=== PATIENT | male | born 1945 | race Caucasian/White ===

== ENCOUNTER 2016-08-25 13:55 | Inpatient (IN) ==
[2016-08-25] MEDS ORDERED: ceFAZolin 1 GM VIAL IV ONE (15:00)
[2016-08-25] MEDS ORDERED: TRANEXAMIC ACID 1,000 MG/10 ML VIAL IV ONE ×2 (15:30→16:20)
[2016-08-25] MEDS ORDERED: LIDOCAINE HCL/PF 100 MG/5 ML SYRINGE IV ONE (15:30)
[2016-08-25] MEDS ORDERED: HYDROmorphone 2 MG/ML SYRINGE IV ONE (15:30)
[2016-08-25] MEDS ORDERED: PROPOFOL 200 MG/20 ML VIAL IV ONE (15:30)
[2016-08-25] MEDS ORDERED: DEXAMETHASONE 10 MG/ML VIAL IV ONE (15:30)
[2016-08-25] MEDS ORDERED: ONDANSETRON 4 MG/2 ML VIAL IV ONE (15:30)
[2016-08-25] MEDS ORDERED: MIDAZOLAM 5 MG/5 ML VIAL IV ONE (15:30)
[2016-08-25] MEDS ORDERED: fentaNYL 250 MCG/5 ML VIAL IV ONE (15:30)
[2016-08-25] MEDS ORDERED: GENTAMICIN SULFATE 800 MG/20 ML VIAL IR ONE (15:51)
[2016-08-25] MEDS ORDERED: ONDANSETRON 4 MG/2 ML VIAL IV PRN ×2 (16:19→16:20)
[2016-08-25] MEDS ORDERED: IPRATROPIUM/ALBUTEROL 3 ML AMPUL.NEB NEB PRN (16:19)
[2016-08-25] MEDS ORDERED: BENZOCAINE/MENTHOL 1 LOZENGE PO PRN ×2 (16:19→16:20)
[2016-08-25] MEDS ORDERED: fentaNYL 100 MCG/2 ML VIAL IV PRN (16:19)
[2016-08-25] MEDS ORDERED: LACTATED RINGERS 250 ML IV PRN (16:19)
[2016-08-25] MEDS ORDERED: PROMETHAZINE 25 MG/ML VIAL IV PRN (16:19)
[2016-08-25] MEDS ORDERED: METHOCARBAMOL 1,000 MG/10 ML VIAL IV PRN (16:19)
[2016-08-25] MEDS ORDERED: NALOXONE HCL 0.4 MG/ML VIAL IV PRN (16:19)
[2016-08-25] MEDS ORDERED: MEPERIDINE 25 MG/ML SYRINGE IV PRN (16:19)
[2016-08-25] MEDS ORDERED: diphenhydrAMINE 50 MG/ML VIAL IV PRN (16:19)
[2016-08-25] MEDS ORDERED: FLUMAZENIL 0.1 MG/ML ML IV PRN (16:19)
[2016-08-25] MEDS ORDERED: ACETAMINOPHEN 325 MG TABLET PO PRN (16:20)
[2016-08-25] MEDS ORDERED: POLYETHYLENE GLYCOL 3350 17 GM PACKET PO PRN (16:20)
[2016-08-25] MEDS ORDERED: TEMAZEPAM 15 MG CAPSULE PO PRN (16:20)
[2016-08-25] MEDS ORDERED: HYDROmorphone 2 MG/ML SYRINGE IV PRN (16:20)
[2016-08-25] MEDS ORDERED: KETOROLAC 15 MG/ML VIAL IV PRN (16:20)
[2016-08-25] MEDS ORDERED: MAGNESIUM HYDROXIDE 30 ML ORAL.SUSP PO PRN (16:20)
[2016-08-25] MEDS ORDERED: BISACODYL 10 MG SUPP.RECT PR PRN (16:20)
[2016-08-25] MEDS ORDERED: FLEETS ADULT ENEMA PR PRN (16:20)
--- NOTE | 2016-08-25 16:24 | Brief Operative Note ---
Date of procedure: 08/25/16 Pre-op diagnosis: left femoral neck fx mid cervical with angulation Post-op diagnosis: same Procedure: Left cemented yadira arthroplasty Grafts/Implants: Yes Anesthesia: GETA Complications: none Surgeon: Teo Diaz Specimens Removed/Pathology: none sent Condition: stable Disposition: PACU
[2016-08-25] MEDS ORDERED: LACTATED RINGERS 1,000 ML IV SCH (16:30)
--- NOTE | 2016-08-25 17:49 | XRay Report ---
CLINICAL INFORMATION: Left hip replacement TECHNIQUE: AP pelvis. AP and lateral left hip COMPARISON: None. FINDINGS: Status post left total hip arthroplasty. Alignment is anatomic. There are skin klaus present. There is postsurgical soft tissue gas IMPRESSION: Left total hip arthroplasty Interpreted and Authenticated by: Davin Gallegos 08/25/16
[2016-08-25] MEDS: 0.45 % SODIUM CHLORIDE 1,000 ML IV SCH (17:55)
[2016-08-25] MEDS ORDERED: SENNOSIDES 1 TABLET PO SCH (21:00)
[2016-08-25] MEDS: DOCUSATE SODIUM 100 MG CAPSULE PO SCH (21:36)
[2016-08-25] MEDS: 0.9 % SODIUM CHLORIDE 10 ML SYRINGE IV SCH (21:37)
[2016-08-25] MEDS: ASPIRIN 325 MG ENTERIC COATED TABLET PO SCH (21:37)
[2016-08-25] MEDS: amLODIPine 5 MG TABLET PO SCH (21:37)
[2016-08-25] MEDS: ceFAZolin 1 GM VIAL IV SCH (23:56)
[2016-08-26] MEDS: 0.45 % SODIUM CHLORIDE 1,000 ML IV SCH ×2 (02:41→03:47)
[2016-08-26] MEDS: HYDROcodone/APAP 10/325MG TABLET PO PRN ×4 (03:49→15:02)
[2016-08-26] MEDS: 0.9 % SODIUM CHLORIDE 10 ML SYRINGE IV SCH (05:19)
[2016-08-26] MEDS: ceFAZolin 1 GM VIAL IV SCH (07:52)
[2016-08-26] MEDS: amLODIPine 5 MG TABLET PO SCH (08:47)
[2016-08-26] MEDS: DOCUSATE SODIUM 100 MG CAPSULE PO SCH (08:47)
[2016-08-26] MEDS: ASPIRIN 325 MG ENTERIC COATED TABLET PO SCH (08:48)
[2016-08-26] MEDS ORDERED: NICOTINE 21 MG PATCH TOPICAL SCH (10:00)
--- NOTE | 2016-08-26 13:48 | Discharge Summary ---
Ortho Discharge - [facility] - Patient Instructions Diet: Regular Diet Activity: activity as tolerated, weight bearing as tolerated Total Hip Protocol: Follow activity instructions as provided by Physical Therapy. Dressing Care: Aquacel Ag - leave on for 5 days Patient Education: Total Hip Replacement (DC) Additional Instructions: Discharge Instructions: Do the exercises at home that physical therapy gave you. Take your prescription, photo ID, insurance cards, and current medication list with you to your first physical therapy appointment. Take your prescription to [employer] driver any medication or equipment (such as walker, crutches, toilet riser or C.P.M.) Wear comfortable clothing for your physical therapy. Weight bearing as tolerated. If you have the Aquacel Ag dressing, leave in place for 7 days then remove. If dressing becomes soiled (turns black), remove and use gauze 4x4 dressing and silvasorb ointment and change daily. Keep incision clean and dry. To avoid constipation while taking any narcotic pain medication, take an over the counter stool softener/laxative. Call Dr Diaz for smoking cessation prescriptions as needed. Call your physician for fevers above 100.5 or pain not controlled by medication. Your prescriptions are with your discharge information. Some medications were electronically transmitted to your pharmacy of choice. - Follow Up Plan Disposition: Home, Self-Care Prognosis: Good Rehab Potential: Good I certify that the patient requires SNF services: No Overall status at discharge: patient is progressing back to baseline
== END 2016-08-26 15:10 | disposition home or self-care (01) | DRG 470 ==
LOC: MEDSUR 14:45
PROVIDERS: ADMIT Orthopaedic Surgery; ATTEND Orthopaedic Surgery
PROC: HEMIHIP (2016-08-25 15:30)